=== PATIENT | female | born 1955 | race Caucasian/White ===

== ENCOUNTER 2016-04-10 12:37 | Emergency (ER) | payer OTHER ==
[2016-04-10 13:11] VITALS: BP 151/72; PULSE 74; RESP 16; TEMP 97.5; O2SAT 98
--- NOTE | 2016-04-10 14:08 | UCPHY ---
H & P Time Seen by Provider: 04/10/16 13:49 Patient Type: New HPI/ROS: CHIEF COMPLAINT: Sinus congestion and pain. HISTORY OF PRESENT ILLNESS: The patient is a 60-year-old female who presents with sinus congestion and pressure for 2 weeks. She initially had congestion in her chest but this moved to her head and she now has no chest congestion. She admits associated mild ear pain. No fever, myalgia, sore throat, or other complaints. REVIEW OF SYSTEMS: Constitutional: No fever, no chills. Eyes: No diplopia. ENT: No sore throat. Cardiovascular: No chest pain, no palpitations. Respiratory: No cough, no shortness of breath, no wheezing. Gastrointestinal: No nausea vomiting or diarrhea. No abdominal pain. Genitourinary: No hematuria or frequency. Musculoskeletal: No back pain. Skin: No rashes. Neurological: No headache. 10 point ROS otherwise negative Past Medical/Surgical History: Denies. Social History: Former smoker, works in an elementary school. Smoking Status: Former smoker Physical Exam: General Appearance: Alert, no distress. Afebrile. Normal phonation. No respiratory distress. Eyes: Pupils equal and round no pallor or injection. No icterus ENT, Mouth: Mucous membranes moist. Pharynx mild erythema but without exudate. TM Clear. Tender over the ethmoid sinuses, bilat. Neck: No adenopathy. Supple. No JVD. Trachea in midline. Respiratory: There are no retractions, lungs are clear to auscultation. Skin: Warm and dry, no rashes. Musculoskeletal: No joint swelling. Extremities: No edema. Psychiatric: Nl affect\ Constitutional: Initial Vital Signs Temperature (C) 36.4 C 04/10/16 13:08 Heart Rate 74 04/10/16 13:08 Respiratory Rate 16 04/10/16 13:08 Blood Pressure 151/72 H 04/10/16 13:08 O2 Sat (%) 98 04/10/16 13:08 O2 Delivery Mode Room Air Allergies/Adverse Reactions: No Known Allergies Allergy (Verified 04/10/16 13:11) Home Medications: Medication Instructions Recorded Amox Tr/K Clav (Augmentin) 500 mg PO BID #10 tab 04/10/16 [Augmentin 500/125 MG TAB (*)] Amoxicillin 1,500 mg PO BID 5 Days 04/10/16 Medical Decision Making Differential Diagnosis: Differential diagnosis includes but is not limited to the following: URI, pharyngitis, strep pharyngitis, otitis media, sinusitis, bronchitis, pneumonia. Departure - Departure Disposition: Home, Routine, Self-Care Clinical Impression: Sinusitis Qualifiers: Sinusitis location: ethmoidal Chronicity: acute Recurrence: non-recurrent Qualified Code(s): J01.20 - Acute ethmoidal sinusitis, unspecified Condition: Good Instructions: Sinusitis (ED) Additional Instructions: Take the antibiotics as prescribed. Drink plenty of fluids and be sure to get rest. Follow up with your primary care provider in the next 3-4 days if symptoms are not improving. Return for any serious worsening of condition. Referrals: Hailey Duffy MD [Primary Care Provider] - As per Instructions Prescriptions: Amox Tr/K Clav (Augmentin) [Augmentin 500/125 MG TAB (*)] 500 mg PO BID #10 tab Amoxicillin 1,500 mg PO BID 5 Days - PQRS PQRS Measurement: Not applicable Report Scribed for: Christian Gaspar Report Scribed by: Michael Gee Date of Report: 04/10/16 Time of Report: 14:09 Physician Review and Approval Statement: 04/10/16 14:09 Portions of this note were transcribed by a medical assistant cardiology. I personally performed a history, physical exam, medical decision making, and confirmed accuracy of information the transcribed note.
== END 2016-04-10 14:25 | disposition home or self-care (01) ==
LOC: CED 12:37
DX: J01.20 Acute ethmoidal sinusitis, unspecified (principal); Z87.891 Personal history of nicotine dependence
CPT/HCPCS: G0463-PO

== ENCOUNTER → 2018-05-18 | Outpatient (CLI) | payer OTHER | LOC: CLAB 11:51 | PROVIDERS: ATTEND Family Medicine | DX: J98.4 Other disorders of lung (principal) | CPT/HCPCS: 71046-PO ==